=== PATIENT | male | born 1985 | race Two or more races ===

== ENCOUNTER 2016-11-30 11:50 | Emergency (ER) | payer MEDICAID ==
[~2016-11-30] VITALS: Ht 170.2 cm; Wt 68.0 kg
[2016-11-30 12:00] VITALS: BP 132/78
[2016-11-30] MEDS ORDERED: IBUPROFEN 600 MG TABLET PO ONE ×2 (13:00→13:05)
== END 2016-11-30 14:26 | disposition home or self-care (01) ==
LOC: ER 11:54
DX: M25.511 Pain in right shoulder (principal); F10.10 Alcohol abuse, uncomplicated
CPT/HCPCS: 73030; 99284; A4606; Z7610

== ENCOUNTER 2018-06-03 02:35 | Emergency (ER) | payer MEDICAID ==
[~2018-06-03] VITALS: Ht 160 cm; Wt 68.5 kg
--- NOTE | 2018-06-03 02:46 | NUR ---
pt ambulatory w/ steady gait, c/o LUQ to LLQ abd pain on palpation, lt flank pain w/ diarrhea, no N/V x few days. AOx4, afebrile w/ resp even & unlabored, facial grimacing, moaning w/ mild discomfort noted. Pt placed on continuous monitoring. Dr. Chisholm at bedside for further eval. Urine obtained & sent to lab.
[2018-06-03] MEDS ORDERED: IV NS 0.9% 1,000 ML BAG IV ONE ×2 (03:00→04:30)
[2018-06-03] MEDS ORDERED: ONDANSETRON HCL/PF 4 MG/2 ML VIAL IVP ONE (03:00)
[2018-06-03] MEDS ORDERED: MORPHINE SULFATE INJ 2 MG/ML DISP.SYRIN IV ONE (03:00)
[2018-06-03] MEDS ORDERED: KETOROLAC TROMETHAMINE INJ 30 MG/ML VIAL IV ONE (03:00)
--- NOTE | 2018-06-03 03:00 | NUR ---
DAFNE started, labs drawn & sent to lab.
[2018-06-03] MEDS ORDERED: ONDANSETRON HCL/PF 4 MG/2 ML VIAL ONE (03:03)
[2018-06-03] MEDS ORDERED: KETOROLAC TROMETHAMINE 15 MG/ML VIAL ONE (03:03)
[2018-06-03] MEDS ORDERED: MORPHINE SULFATE INJ 4 MG/ML DISP.SYRIN ONE (03:04)
--- NOTE | 2018-06-03 03:10 | NUR ---
pt medicated as ordered for continued LUQ, LLQ abd, lt flank pain, facial grimacing, moaning. On continuous monitoring.
[2018-06-03 03:14] LABS: APPEARANCE,URINE Clear (CLEAR); BILIRUBIN,URINE Negative (NEGATIVE); BLOOD, URINE Negative Ery/uL (NEGATIVE); COLOR,URINE Yellow (YELLOW); KETONES,URINE 40 (NEGATIVE); LEUKOCYTE ESTERASE ,URINE Negative (NEGATIVE); NITRITE, URINE Negative (NEGATIVE); PH,URINE 5.5 (5.0-8.0); PROTEIN,URINE Trace mg/dl (NEGATIVE); UGLUCOSE Negative (NEGATIVE); UROBILINOGEN,URINE 0.2 EU/dL (0.2)
[2018-06-03 03:21] LABS: CALCIUM, SERUM 8.3 mg/dL (8.5-10.1); CREATININE 0.8 mg/dL (0.6-1.3); POTASSIUM 3.9 mmol/L (3.5-5.1)
[2018-06-03 03:26] LABS: ALBUMIN 3.7 g/dL (3.4-5.0); BILIRUBIN,DIRECT 0.1 mg/dL (0.0-0.2); TOTAL PROTEIN, SERUM 7.1 g/dL (6.4-8.2)
[2018-06-03 03:27] LABS: BASOPHILS % (AUTO) 0.1 % (0.0-2.0); EOSINOPHILS % (AUTO) 0.6 % (0.0-6.0); HEMATOCRIT 43 % (39-51); HEMOGLOBIN 14.8 g/dL (13.5-17.5); LYMPHOCYTES # (AUTO) 0.9 /CMM (0.8-4.8); LYMPHOCYTES % (AUTO) 7.9 % (20.0-44.0); MEAN CORPUSCULAR HGB CONC 35 g/dl (31.0-36.0); MEAN CORPUSCULAR VOLUME 91 fL (80-96); MONOCYTES # (AUTO) 0.8 /CMM (0.1-1.30); NEUTROPHILS # (AUTO) 9.5 /CMM (1.8-8.9); NEUTROPHILS % (AUTO) 84.4 % (43.0-81.0); PLATELET COUNT (AUTO) 190 /CMM (150-450); RED BLOOD CELL COUNT(AUTO) 4.67 MIL/uL (4.5-6.0); WHITE BLOOD COUNT (AUTO) 11.3 K/uL (4.3-11.0)
--- NOTE | 2018-06-03 03:35 | NUR ---
CXR at bedside. pt sent to CT via [facility] w/ nad noted.
--- NOTE | 2018-06-03 03:51 | NUR ---
pt back fr CT w/ resp even & unlabored, nad noted. pt on continuous monitoring.
[2018-06-03 04:05] LABS: BACTERIA,URINE None seen /HPF (None Seen); MUCUS,URINE Few /LPF (None Seen); RBC,URINE 0-2 /HPF (0-2); SQUAMOUS EPITHELIAL CELL,UR Few /HPF (None Seen); WBC,URINE 0-2 /HPF (0-3)
--- NOTE | 2018-06-03 04:10 | NUR ---
pt resting comfortably w/ eyes closed, easily arousable, resp even & unlabored, nad noted. Awaiting XR & CT results. pt at bedside.
[2018-06-03 05:13] VITALS: BP 115/64
--- NOTE | 2018-06-03 05:14 | NUR ---
IV removed. Catheter intact and site benign. Pressure and 4x4 applied to site. No bleeding noted.Patient discharged to home in stable condition. Written and verbal after care instructions given. Patient verbalizes understanding of instruction.
== END 2018-06-03 05:14 | disposition home or self-care (01) ==
LOC: ER 02:38
DX: K59.00 Constipation, unspecified (principal); F10.10 Alcohol abuse, uncomplicated; R73.9 Hyperglycemia, unspecified; R19.7 Diarrhea, unspecified; Y90.9 Presence of alcohol in blood, level not specified
CPT/HCPCS: 36415; 71045; 74176; 80048; 80076; 81001; 83690; 85025; 96361; 96374; 96375; 99284; J1885; J2270; J2405; J7030 ×2; 81000-TC

== ENCOUNTER 2020-11-06 09:15 | Emergency (ER) | payer MEDICAID ==
[~2020-11-06] VITALS: Ht 165.1 cm; Wt 74.4 kg
[2020-11-06 09:23] VITALS: BP 129/85
--- NOTE | 2020-11-06 09:23 | NUR ---
AT BEDSIDE FOR EVAL.
[2020-11-06] MEDS ORDERED: IBUP-1953 PO (09:26)
--- NOTE | 2020-11-06 09:36 | NUR ---
Patient discharged to home in stable condition. Written and verbal after care instructions given. Patient verbalizes understanding of instruction.
== END 2020-11-06 09:38 | disposition home or self-care (01) ==
LOC: ER 09:18
DX: M25.512 Pain in left shoulder (principal); M54.5 Low back pain; M54.6 Pain in thoracic spine

== ENCOUNTER → 2021-09-27 | Emergency (ER) | payer MEDICAID ==
[~2021-09-27] VITALS: Ht 167.6 cm; Wt 79.4 kg
[~2021-09-27] MED LIST: HYDROCODONE/APAP 5/325MG TABLET ONE; HYDROCODONE/APAP 5/325MG TABLET PO ONE; IBUP-1953 PO; KETOROLAC TROMETHAMINE INJ 30 MG/ML VIAL ONE; KETOROLAC TROMETHAMINE INJ 60 MG/2 ML VIAL IM ONE
[2021-09-27 15:20] VITALS: BP 144/75
--- NOTE | 2021-09-27 15:39 | NUR ---
RAPID STREP AND RAPID COVID SWAB DONE AND SENT TO LAB
--- NOTE | 2021-09-27 16:17 | NUR ---
LAB CALLED PT TESTED POSITIVE (+) INFORMED.
== END | disposition home or self-care (01) ==
LOC: ER 14:55
DX: U07.1 COVID-19 (principal)
CPT/HCPCS: 99283; 87426; 96372; 87070; 87880; J1885; C9803; 86403-TC

== ENCOUNTER 2024-01-31 05:12 | Emergency (ER) | payer MEDICAID, OTHER ==
[~2024-01-31] VITALS: Ht 162.6 cm; Wt 68.0 kg
[~2024-01-31 05:12] MED LIST changes: -HYDROCODONE/APAP 5/325MG TABLET ONE; -HYDROCODONE/APAP 5/325MG TABLET PO ONE; -KETOROLAC TROMETHAMINE INJ 30 MG/ML VIAL ONE; -KETOROLAC TROMETHAMINE INJ 60 MG/2 ML VIAL IM ONE
[2024-01-31] MEDS ORDERED: KETOROLAC TROMETHAMINE 15 MG/ML VIAL ONE (06:43)
[2024-01-31] MEDS ORDERED: ACETAMINOPHEN ES 500 MG TABLET ONE (06:43)
[2024-01-31 06:46] VITALS: TEMP 99.9
[2024-01-31] MEDS: ACETAMINOPHEN ES 500 MG TABLET PO ONE (06:46)
[2024-01-31] MEDS: KETOROLAC TROMETHAMINE 15 MG/ML VIAL IM ONE (06:46)
[2024-01-31] MEDS ORDERED: CYCL10TA9 PO (09:28)
[2024-01-31] MEDS ORDERED: ACET-2605 PO (09:28)
[2024-01-31] MEDS ORDERED: IBUP-1490 PO (09:28)
[2024-01-31 09:34] VITALS: BP 121/78; O2SAT 98
== END 2024-01-31 09:35 | disposition home or self-care (01) ==
LOC: ER 05:16
DX: J06.9 Acute upper respiratory infection, unspecified (principal); B97.89 Other viral agents as the cause of diseases classified elsewhere; J34.89 Other specified disorders of nose and nasal sinuses; R42 Dizziness and giddiness; Z79.1 Long term (current) use of non-steroidal anti-inflammatories (NSAID); Z20.822 Contact with and (suspected) exposure to COVID-19
CPT/HCPCS: 99283; 87426; 96372; 87804 ×2; J1885